=== PATIENT | female | born 1970 | race Two or more races ===

== ENCOUNTER 2020-04-28 10:08 | Inpatient (IN) | payer BC, SELFPAY ==
[2020-04-28] VITALS (26 sets, daily range): BP systolic 99–162; BP diastolic 60–106; PULSE 68–89; RESP 14–20; TEMP 36.6–37.1; O2SAT 91–99; BMI 34.3; BMI 30.9; BMI 31.8
--- NOTE | 2020-04-28 | IR_ITS ---
APPROVED REPORT Patient Location: Emergent Gr[facility] Lap: CANDACE Bower RT (R) PROCEDURES Left heart catheterization Left ventriculogram Selective coronary angiogram Drug-eluting stent deployment to the proximal and mid LAD INDICATION Acute non-ST elevation myocardial infarction, Coronary artery disease Informed consent was obtained prior to the procedure. COMPLICATIONS none Estimated Blood Loss: less than 10 mls TECHNIQUE One percent lidocaine used to anesthetize the right anterior aspect of the wrist. The right radial artery was accessed via the Seldinger technique. A 6 Amharic sheath was placed in the right radial artery. 2.5 mg of verapamil, 800 mcg of nitroglycerin, 1mg Lidocaine and 5000 U Heparin were given through the arterial sheath. A Papa catheter was used to intubate the left main artery and perform left coronary angiography as well as left heart catheterization and left ventriculogram as well as right coronary artery angiography. Therapeutic heparin was administered. The guide catheter was placed in the left main artery and a Choice PT extra-support wire was placed distally in the LAD. A 2.5 x 38 mm resolute jacki stent was deployed at 14 perla reducing the stenosis. A small dissection was identified distally therefore a 2 mm x 8 mm resolute jacki stent was deployed at 14 perla tacking back the dissection. The second stent overlapped with the distal aspect of the first stent. The balloon was then brought back into the 2 stents and deployed at 20 perla to mesh the stents. Following this a 3.0 x 15 mm resolute jacki stent was placed proximal to the first stent placed yet still overlapping it and deployed at 20 perla. The balloon was advanced on 2 occasions and dilated at 20 perla to post dilate the midportion of the LAD. 800 mcg of nitroglycerin was administered intra-arterially. CHAGO-3 flow was present at the end of the procedure with CHAGO II flow present at the beginning of the procedure. Following this the catheter was pulled out and used to intubate the right coronary artery. A wire was initially placed distally however after repeat angiography it was decided to abort this procedure given the decent collateralization of the distal chronically occluded right coronary artery. At this point the apparatus was removed the sheath was removed good hemostasis was achieved using TR banding patient was transferred to the postop holding her stable condition ANGIOGRAPHIC RESULTS The left main artery Normal The left anterior descending artery Has a proximal concentric 80% stenosis followed by 40% mid vessel stenosis followed by an additional 80% stenosis proximal to the second diagonal artery. The remaining vessel has 30% stenoses The circumflex artery Is a large dominant vessel and has mid vessel 30 to 40% stenosis with 30% stenosis in the terminal large obtuse marginal artery The right coronary artery Is a nondominant vessel and occluded in its mid segment. The distal vessel fills via [id number] collaterals The PAYNE ventriculogram reveals Reduced ejection fraction estimated at 35% with anterior apical hypokinesis The left ventricular end-diastolic pressure 20 mmHg IMPRESSION Critical two-vessel coronary disease as described above Successful stenting of the proximal through mid right coronary artery in a contiguous manner with 3 drug-eluting stents reducing critical disease to 0% and improving coronary flow from CHAGO II to CHAGO-3 flow Chronically occluded nondominant right coronary artery which fills via [id number] collaterals Reduced ejection fraction with regional wall motion abnormality Mildly elevated LVEDP PLAN 1. Brilinta and aspirin for 1 year 2. LDL less than 55 3
--- NOTE | 2020-04-28 10:03 | ECG_ITS ---
APPROVED REPORT Exam: Resting ECG HR:93 bpm ECG Measurements Heart Rate 93 AXES ND 136 P 67 QRSd 82 QRS 40 QT 426 T 144 QTc 529 <Conclusion> Sinus rhythm with frequent premature ventricular complexes Cannot rule out Inferior infarct, age undetermined Anterior infarct, age undetermined ST & T wave abnormality, consider lateral ischemia Prolonged QT Abnormal ECG Electronically signed by : Phillip Lopez, 04/28/2020 17:26:50
--- NOTE | 2020-04-28 10:14 | XR_ITS ---
PROCEDURE: XR CHEST PORTABLE CLINICAL HISTORY: chest pain COMPARISON: No exams were available for comparison FINDINGS: 0.2 millimeter calcified granuloma within the left lung apex is noted. There is mild thoracic scoliosis. Heart is enlarged and soft tissues are intact IMPRESSION: 3.2 millimeter left apical calcified granuloma, mild thoracic scoliosis, cardiomegaly Dictated by: Ezequiel Tsang 04/28/2020 11:18 Electronically signed by Ezequiel Tsang in [facility] 04/28/2020 11:18
--- NOTE | 2020-04-28 10:18 | CT_ITS ---
PROCEDURE: CT ANGIO CHEST CLINCIAL INDICATION: chest pain COMPARISON: No exams were available for comparison TECHNIQUE: IV Contrast: 70ML OPTIRAY 350 Axial images obtained with sagittal and coronal reformats. All CT scans at the facility use one or more dose reduction, viz: automated exposure control, ma/kV adjustment per patient size (including targeted exams where dose is matched to indication, i.e. head), or iterative reconstruction technique. FINDINGS: There is mild hypoventilation within the dependent portions of both lung bases. Tracheobronchial tree is unremarkable. There is a 1 centimeter calcified granuloma within the left lung apex. Thyroid is incompletely visualized. Subcentimeter mediastinal lymph nodes are noted. There are coronary artery calcifications. There is no CT evidence of pulmonary emboli. Partially visualized upper abdominal structures, adrenal glands, soft tissues, and the bony structures are unremarkable. IMPRESSION: Left apical granuloma, no CT evidence of pulmonary emboli Dictated by: Ezequiel Tsang 04/28/2020 11:12 Electronically signed by Ezequiel Tsang in [facility] 04/28/2020 11:12
[2020-04-28 10:28] LABS: Basophils # 0.1 K/mm3 (0-0.2); Basophils % 0.4 % (0.1-2.0); Eosinophils # 0.2 K/mm3 (0.0-0.4); Eosinophils % 1.3 % (0.1-12.0); Hemoglobin 13.9 g/dL (12.2-16.2); Lymphocytes # 1.8 K/mm3 (0.7-4.5); Lymphocytes % 16.1 % (10-50); Mean Corpuscular HGB Conc 36.5 g/dL (31.8-35.4); Mean Corpuscular Hemoglobin 31.6 pg (27.0-31.2); Mean Corpuscular Volume 86.6 fl (81-99); Mean Platelet Volume 7.6 fl (7.4-10.4); Monocytes # 0.5 K/mm3 (0.1-1.0); Monocytes % 4.4 % (1.7-9.3); Neutrophils # 8.7 K/mm3 (1.8-7.8); Neutrophils % 77.9 % (37.0-80.0); Platelet Count 207 K/mm3 (142-424); Red Blood Count 4.39 M/mm3 (4.20-5.40); Red Cell Distribution Width 15.9 % (11.5-17.5); White Blood Count 11.2 K/mm3 (4.8-10.8)
[2020-04-28 10:33] LABS: Anion Gap 8.6 mEq/L (5-15); Blood Urea Nitrogen 5 mg/dl (7-17); Calcium 9.1 mg/dl (8.4-10.2); Carbon Dioxide 31 mmol/L (22.0-30.0); Chloride 104 mmol/L (98-107); Creatinine Clearance Estimated 125 mL/min (50-200); Estimated Glomerular Filt Rate 89 ml/min (>60); GFR (African American) 108 ML/MIN (>60); Glucose 156 mg/dl (74-100); Sodium 141 mmol/L (136-145)
[2020-04-28 10:35] LABS: Potassium 2.6 mmoL/L (3.5-5.1)
--- NOTE | 2020-04-28 10:35 | PC.NURSE ---
CECILIA, FROM LAB, CALLED A CRITICAL POTASSIUM OF 2.6 MD NOTIFIED.
--- NOTE | 2020-04-28 11:32 | CA_ITS ---
APPROVED REPORT EXAM: Comprehensive 2D, Doppler, and color-flow Echocardiogram Product Sales Representative: Daniella Serrano RDCS Ht: 5 ft 4 in Wt: 180lbs BSA: 1.87 BP: 148/95 mmHg Indications: CP,NSTEMI 2D Dimensions LVOT 1.64 cm (M/F) 1.5-2.5 M-Mode Dimensions RVDd 3.04 cm (0.9-2.6) LVDd 4.82 cm (3.5-5.7) LVDs 3.72 cm (3.5-5.7) IVSd 0.87 cm (0.6-1.1) PWd 0.80 cm (0.6-1.1) EF (Teich) 45.80% FS 22.80% EDV (Teich) 108.60 mL ESV (Teich) 58.90 mL LV Diastology E/A Ratio 0.82 Mitral Valve MV A Velocity 75.00 (40-130 cm/s) Left Ventricle Left atrium is mildly enlarged, left ventricle is normal size, mild concentric left ventricular hypertrophy, visually estimated ejection fraction 45%, there is moderate hypokinesis involving the mid to distal septum and apical wall. Grade 1 diastolic dysfunction seen without tissue Doppler evidence of raise left atrial pressure. Right Ventricle Right atrium and right ventricular normal size and contractility. Aortic Valve Aortic valve is minimally thickened and fibrosed, there is no aortic stenosis or aortic insufficiency. Mitral Valve Mitral valve is minimally thickened, there is no mitral stenosis, there is mild mitral regurgitation. Tricuspid Valve Tricuspid valve is grossly normal, there is mild tricuspid regurgitation, tricuspid regurgitation jet velocity is inadequate for calculation of the right ventricular systolic pressure. Pulmonic Valve Pulmonic valve is poorly visualized. Great Vessels Aortic root is normal size. Pericardium No significant pericardial effusion noted. Conclusion 1. Mildly enlarged left atrium, normal left ventricular size, mild concentric left ventricular hypertrophy, visually estimated ejection fraction 45% with segmental wall motion abnormality described above, grade 1 diastolic dysfunction seen without tissue Doppler evidence of raise left atrial pressure. 2. Mild mitral and tricuspid regurgitation. 3. No significant pericardial effusion noted. Electronically signed by : Brian Johnson, 04/28/2020 19:03:31
--- NOTE | 2020-04-28 11:35 | HMH.CNCARD ---
History of Present Illness Consult date: 04/28/20 Consult reason: chest pain Chief complaint: NSTEMI Additional Medical History:: 1. Tobacco use, 1 pack/day, continuous A. Emphysema B. Follows a esthetic dermatologist in [facility] 2. History of stage IV cirrhosis of the liver secondary to history of alcohol use discontinued about 4 years ago A. Patient is followed by sampler radioactive waste in [facility] 3. Non-ST elevation IA, 04/28/2020 4. Family history of coronary artery disease in her mother and reportedly had heart disease starting in her late 40s early 50s History of present illness: 50-year-old white female with tobacco use, COPD and cirrhosis of the liver who normally has most of her care provided in [facility] presented to the emergency department by ambulance for evaluation of chest pain/pressure that started continuously on 04/26/2020. Symptoms of heavy chest pressure woke him from sleep with associated dry heaving ultimately progressing to vomiting with shortness of breath and diaphoresis. Patient did take an aspirin yesterday and today the symptoms persisted which prompted calling EMS for further evaluation. She does relate intermittent chest pressure for 1 week. She does continue to smoke. She denies illegal drug use. Initial work-up in the ER included CTA of the chest for possible pulmonary embolus, it returned without evidence of pulmonary embolus. EKG shows sinus rhythm with poor R wave progression anteriorly, possible inferior infarct with nonspecific ST-T abnormalities. Initial labs pertinent for potassium of 2.6 and troponin of 15.0 Cardiology contacted and patient was started on Brilinta and heparin. [facility] History *Have you ever received a pneumonia vaccine?: No *Have you received a flu vaccine this season?: Yes - *Social History Smoking Status: Current every day smoker Tobacco Type: cigarettes # Packs/Day (cigarettes): 1 Alcohol Intake: never *Occupational Status:: other Housing: other Household Members: other *Travel in the last 8 weeks: None Family Hx:: Coronary Artery Disease Meds Allergies Allergy/AdvReac Type Severity Reaction Status Date / Time morphine Allergy Intermediate itching Verified 04/28/20 11:40 ondansetron [From Zofran] Allergy Unknown Verified 04/28/20 11:40 allergy reaction Review of Systems - Review of Systems Review of systems:: pertinent systems reviewed and negative unless documented below - *Cardiovascular Reports chest pain, Reports shortness of breath - *Respiratory Reports shortness of breath - *Gastrointestinal Reports nausea, Reports vomiting, Denies loose stools - *Genitourinary Denies blood in urine - *Musculoskeletal Denies joint pain, Denies back pain - *Neurologic Denies dizziness, Denies fainting Exam Vital signs and Labs for Last 24 Hours: Temp Pulse Resp BP Pulse Ox 98.2 F 83 16 133/83 98 04/28/20 10:09 04/28/20 10:48 04/28/20 10:09 04/28/20 10:48 04/28/20 10:09 Laboratory Results - last 24 hr 04/28/20 10:10: WBC 11.2 H, RBC 4.39, Hgb 13.9, Hct 38.0, MCV 86.6, MCH 31.6 H, MCHC 36.5 H, RDW 15.9, Plt Count 207, MPV 7.6, Neut % (Auto) 77.9, Lymph % (Auto) 16.1, [place] % (Auto) 4.4, Eos % (Auto) 1.3, Baso % (Auto) 0.4, Neut # (Auto) 8.7 H, Lymph # (Auto) 1.8, [place] # (Auto) 0.5, Eos # (Auto) 0.2, Baso # (Auto) 0.1 04/28/20 10:10: Troponin I 15.00 H 04/28/20 10:10: Sodium 141, Potassium 2.6 L*, Chloride 104, Carbon Dioxide 31 H, Anion Gap 8.6, BUN 5 L, Creatinine 0.70, Estimated Creat Clear 125, Estimated GFR 89, Est GFR ( Amer) 108, Glucose 156 H, Calcium 9.1 I & O for Last 24 hours: Intake & Output 04/25/20 04/26/20 04/27/20 04/28/20 11:59 11:59 11:59 11:59 Weight 180 lb - *Routine HEENT Exam Head: Present: normocephalic Eye: Present: EOMI, PERRL ENT: Present: mucous membranes moist - *Routine Neck Exam Present: supple. Absent: JVD, carotid bruit - *Routine Respiratory Exam
[2020-04-28 11:42] LABS: Activated Partial Thrombo Time 22.6 seconds (23.6-34.0); INR 1.08 (0.9-1.1)
--- NOTE | 2020-04-28 11:44 | PC.NURSE ---
echo being done now
[2020-04-28 11:45] LABS: Adenovirus,PCR Not Detected (NotDetected); Bordetella Pertussis Not Detected (NotDetected); Chlamydophila Pneumoniae, PCR Not Detected (NotDetected); Coronavirus 19, PCR Not Detected (NotDetected); Coronavirus 229E Not Detected (NotDetected); Coronavirus NL63 Not Detected (NotDetected); Coronavirus OC43 Not Detected (NotDetected); Coronovirus HKU1,PCR Not Detected (NotDetected); Human Metapneumovirus Not Detected (NotDetected); Influenza A, PCR Not Detected (NotDetected); Influenza AH1, 2009 Not Detected (NotDetected); Influenza AH1, PCR Not Detected (NotDetected); Influenza AH3,PCR Not Detected (NotDetected); Influenza B, PCR Not Detected (NotDetected); Mycoplasma Pneumoniae, PCR Not Detected (NotDected); Parainfluenza 1, PCR Not Detected (NotDetected); Parainfluenza 2, PCR Not Detected (NotDetected); Parainfluenza 3, PCR Not Detected (NotDetected); Parainfluenza 4, PCR Not Detected (NotDetected); Respiratory Syncytial Virus Not Detected (NotDetected); Rhinovirus/Enterovirus Not Detected (NotDetected)
--- NOTE | 2020-04-28 12:08 | PC.NURSE ---
pt transferred to laborer wharf
--- NOTE | 2020-04-28 12:22 | PC.NURSE ---
SPEAKING WITH DR. CARDOZA
--- NOTE | 2020-04-28 12:25 | PC.NURSE ---
SPOKE WITH CARE MANAGEMENT
--- NOTE | 2020-04-28 12:31 | PC.NURSE ---
NOTIFIED HOUSE OF ADMISSION
--- NOTE | 2020-04-28 12:57 | HMH.EDGENADL ---
ED Disposition Clinical Impression: Non-STEMI (non-ST elevated myocardial infarction), Chest pain Disposition: Admitted as Observation Condition on Discharge: Good - Critical Care Critical Care Time: No Attestation: On 04/28/20, the high probability of a clinically significant, sudden or life threatening deterioration of the following system(s) required my full and direct attention, intervention and personal management. The time I documented below is in addition to time spent performing reported procedures but includes the following listed in this critical care notation. Medical Decision Making - Medical Records Medical records reviewed: Yes: I reviewed the patient's medical records. - Lee Inquiry Pt receiving controlled substance: No Vital Signs: 04/28/20 10:09 04/28/20 10:48 04/28/20 11:00 Temperature 98.2 F Temperature Source Oral Pulse Rate Pulse Rate [Left Radial] 88 83 80 Respiratory Rate 16 Blood Pressure Blood Pressure [Right Radial Artery] 156/106 H 133/83 134/93 H Blood Pressure Mean [Right Radial Artery] 122 99 106 Blood Pressure Source [Right Radial Artery] Blood Pressure Position Blood Pressure Position [Right Radial Artery] Sitting Sitting 02 Sat by Pulse Oximetry 98 Oxygen Delivery Method Room Air 04/28/20 11:30 04/28/20 11:39 04/28/20 12:00 Temperature Temperature Source Pulse Rate Pulse Rate [Left Radial] 81 76 76 Respiratory Rate 20 Blood Pressure Blood Pressure [Right Radial Artery] 142/98 H 142/98 H 125/90 Blood Pressure Mean [Right Radial Artery] 112 112 101 Blood Pressure Source [Right Radial Artery] Automatic Cuff Blood Pressure Position Blood Pressure Position [Right Radial Artery] Sitting Supine Sitting 02 Sat by Pulse Oximetry 95 Oxygen Delivery Method Room Air 04/28/20 12:29 Temperature 98 F Temperature Source Oral Pulse Rate 78 Pulse Rate [Left Radial] Respiratory Rate 16 Blood Pressure 135/90 Blood Pressure [Right Radial Artery] Blood Pressure Mean [Right Radial Artery] Blood Pressure Source [Right Radial Artery] Blood Pressure Position Sitting Blood Pressure Position [Right Radial Artery] 02 Sat by Pulse Oximetry Oxygen Delivery Method Room Air - Lab Data Lab results reviewed: Yes: I reviewed the patient's lab results. Lab Results 04/28/20 10:10: WBC 11.2 H, RBC 4.39, Hgb 13.9, Hct 38.0, MCV 86.6, MCH 31.6 H, MCHC 36.5 H, RDW 15.9, Plt Count 207, MPV 7.6, Neut % (Auto) 77.9, Lymph % (Auto) 16.1, [place] % (Auto) 4.4, Eos % (Auto) 1.3, Baso % (Auto) 0.4, Neut # (Auto) 8.7 H, Lymph # (Auto) 1.8, [place] # (Auto) 0.5, Eos # (Auto) 0.2, Baso # (Auto) 0.1 04/28/20 10:10: Troponin I 15.00 H 04/28/20 10:10: Sodium 141, Potassium 2.6 L*, Chloride 104, Carbon Dioxide 31 H, Anion Gap 8.6, BUN 5 L, Creatinine 0.70, Estimated Creat Clear 125, Estimated GFR 89, Est GFR ( Amer) 108, Glucose 156 H, Calcium 9.1 04/28/20 10:10: PT 11.0, INR 1.08, APTT 22.6 L 04/28/20 11:30: Chlamy pneumoniae PCR Not detected, Adenovirus (PCR) Not detected, B. pertussis DNA (PCR) Not detected, Coronavirus OC43 (PCR) Not detected, Coronavirus HKU1 (PCR) Not detected, Coronavirus 229E (PCR) Not detected, COVID-19 PCR Not detected, Coronavirus NL63 (PCR) Not detected, Human Metapneumovir PCR Not detected, Influenza A (H1) PCR Not detected, Influ A (H1N1/09) PCR Not detected, Influenza A (H3) PCR Not detected, Influenza Type A (PCR) Not detected, Influenza Type B (PCR) Not detected, M. pneumoniae (PCR) Not detected, Parainfluenza 1 (PCR) Not detected, Parainfluenza 2 (PCR) Not detected, Parainfluenza 3 (PCR) Not detected, Parainfluenza 4 (PCR) Not detected, RSV (PCR) Not detected, Entero/Rhino (PCR) Not detected Result diagrams: 04/28/20 10:10 04/28/20 10:10 Orders (Tests/Meds): ED MEDICATIONS Generic Name Dose Route Start Last Admin Trade Name Freq PRN Reason Stop Dose Admin Atorvastatin Calcium 80 mg 04/28/20 12:00 04/28/20 12
--- NOTE | 2020-04-28 14:06 | P.CONPHA_ITS ---
[facility] [place] Pharmacy Heparin Dosing - Demographic Data Admission date:: 04/28/20 Date: 04/28/20 Time: 14:07 Allergies/Adverse Reactions: Allergies Allergy/AdvReac Type Severity Reaction Status Date / Time morphine Allergy Intermediate itching Verified 04/28/20 11:40 ondansetron [From Zofran] Allergy Unknown Verified 04/28/20 11:40 allergy reaction Height: 1.63 m Weight: 81.6 kg - Indication Medication therapy:: Heparin Patient Problems: Current Active Problems NSTEMI (non-ST elevated myocardial infarction) (Acute) Tobacco use (Acute) COPD (chronic obstructive pulmonary disease) (Acute) Cirrhosis of liver (Acute) Hypokalemia (Acute) Non-STEMI (non-ST elevated myocardial infarction) (Acute) Chest pain (Acute) CVA?: No Bleeding problem?: No Kidney disease?: No W[place]?: No Desired PTT range:: 60-80 seconds - Labs Anticoagulation Lab Results:: 04/28/20 10:10 Hgb 13.9 Hct 38.0 Plt Count 207 - Core Measures Is INR > or = 2 at discharge?: No Most Recent Labs:: Laboratory Results - last 24 hr 04/28/20 10:10: WBC 11.2 H, RBC 4.39, Hgb 13.9, Hct 38.0, MCV 86.6, MCH 31.6 H, MCHC 36.5 H, RDW 15.9, Plt Count 207, MPV 7.6, Neut % (Auto) 77.9, Lymph % (Auto) 16.1, [place] % (Auto) 4.4, Eos % (Auto) 1.3, Baso % (Auto) 0.4, Neut # (Auto) 8.7 H, Lymph # (Auto) 1.8, [place] # (Auto) 0.5, Eos # (Auto) 0.2, Baso # (Auto) 0.1 04/28/20 10:10: Troponin I 15.00 H 04/28/20 10:10: Sodium 141, Potassium 2.6 L*, Chloride 104, Carbon Dioxide 31 H, Anion Gap 8.6, BUN 5 L, Creatinine 0.70, Estimated Creat Clear 125, Estimated GFR 89, Est GFR ( Amer) 108, Glucose 156 H, Calcium 9.1 04/28/20 10:10: PT 11.0, INR 1.08, APTT 22.6 L 04/28/20 11:30: Chlamy pneumoniae PCR Not detected, Adenovirus (PCR) Not detected, B. pertussis DNA (PCR) Not detected, Coronavirus OC43 (PCR) Not detected, Coronavirus HKU1 (PCR) Not detected, Coronavirus 229E (PCR) Not detected, COVID-19 PCR Not detected, Coronavirus NL63 (PCR) Not detected, Human Metapneumovir PCR Not detected, Influenza A (H1) PCR Not detected, Influ A (H1N1/09) PCR Not detected, Influenza A (H3) PCR Not detected, Influenza Type A (PCR) Not detected, Influenza Type B (PCR) Not detected, M. pneumoniae (PCR) Not detected, Parainfluenza 1 (PCR) Not detected, Parainfluenza 2 (PCR) Not detected, Parainfluenza 3 (PCR) Not detected, Parainfluenza 4 (PCR) Not detected, RSV (PCR) Not detected, Entero/Rhino (PCR) Not detected If INR was < than 2.0 why was therapy stopped?: HEPARIN DRIP STOPPED AND CHANGE TO ASPIRIN/BRILINTA Were Heparin and Warfarin started on the same day?: No If not, why?: HEPARIN DRIP STOPPED AND CHANGE TO ASPIRIN/BRILINTA
[2020-04-28 14:55] LABS: CATHL Activated Clotting Time 251 SEC (74-125)
--- NOTE | 2020-04-28 15:19 | HMH.PHAVTE ---
[facility] Pharmacy VTE Monitoring - Patient Demographics Admission date: 04/28/20 Report Date: 04/28/20 Time: 15:19 Allergies/Adverse Reactions: Patient Allergies morphine Allergy (Intermediate, Verified 04/28/20 11:40) itching ondansetron [From Zofran] Allergy (Verified 04/28/20 11:40) Unknown allergy reaction Height: 1.63 m Weight: 81.6 kg Patient Problems: Current Active Problems NSTEMI (non-ST elevated myocardial infarction) (Acute) Tobacco use (Acute) COPD (chronic obstructive pulmonary disease) (Acute) Cirrhosis of liver (Acute) Hypokalemia (Acute) Non-STEMI (non-ST elevated myocardial infarction) (Acute) Chest pain (Acute) - VTE Risk Labs: VTE Related Lab Results Hgb 13.9 g/dL (12.2-16.2) 04/28/20 10:10 Hct 38.0 % (37.0-47.0) 04/28/20 10:10 Plt Count 207 K/mm3 (142-424) 04/28/20 10:10 PT 11.0 seconds (9.4-11.8) 04/28/20 10:10 INR 1.08 (0.9-1.1) 04/28/20 10:10 APTT 22.6 seconds (23.6-34.0) L 04/28/20 10:10 BUN 5 mg/dl (7-17) L 04/28/20 10:10 Creatinine 0.70 mg/dl (0.52-1.04) 04/28/20 10:10 Estimated Creat Clear 125 mL/min (50-200) 04/28/20 10:10 Was VTE Risk Assessment Performed: Yes VTE Score: 2 VTE Risk Level: Very Low Risk - Prophylaxis VTE Prophylaxis Ordered?: Yes Types of VTE Prophylaxis: TEDS Knee High Location of Applied Device: Bilateral Lower Extremeties - VTE Diagnosis Confirmed Treatment or plan recommended: Continue Current Treatment
--- NOTE | 2020-04-28 17:14 | HMH.HP ---
*Admission Date: 04/28/20 *Chief complaint: Chest pain/SOA *History of present illness: 50-year-old white female with tobacco use, COPD and cirrhosis of the liver who normally has most of her care provided in [facility] presented to the emergency department by ambulance for evaluation of chest pain/pressure that started continuously on 04/26/2020. Symptoms of heavy chest pressure woke him from sleep with associated dry heaving ultimately progressing to vomiting with shortness of breath and diaphoresis. Patient did take an aspirin yesterday and today the symptoms persisted which prompted calling EMS for further evaluation. She does relate intermittent chest pressure for 1 week. She does continue to smoke. She denies illegal drug use. Initial work-up in the ER included CTA of the chest for possible pulmonary embolus, it returned without evidence of pulmonary embolus. EKG shows sinus rhythm with poor R wave progression anteriorly, possible inferior infarct with nonspecific ST-T abnormalities. Initial labs pertinent for potassium of 2.6 and troponin of 15.0 Cardiology contacted and patient was started on Brilinta and heparin. Above per cards... taken to lab scientist urgently. [facility] History I have reviewed the patient's past medical history: Yes Medical History: Reports:: Chronic Obstructive Pulmonary Disease (COPD), Hyperlipidemia, Hypertension *Have you ever received a pneumonia vaccine?: Yes *Have you received a flu vaccine this season?: Yes Laterality Cases: Left: Arthroscopy Shoulder, Bilateral: Carpal Tunnel Release Other Surgeries: Yes: Cholecystectomy, Colonoscopy Amputation: No Fractures: No - *Social History Educational Level: Attended High School Smoking Status: Current every day smoker Tobacco Type: cigarettes # Packs/Day (cigarettes): 1 Alcohol Intake: never *Occupational Status:: disabled Housing: other Household Members: friend(s) *Travel in the last 8 weeks: None Family Hx:: Heart Attack Review of Systems - Review of Systems Review of systems:: pertinent systems reviewed and negative unless documented below - *Neurologic Denies dizziness, Denies fainting Meds Allergies Allergy/AdvReac Type Severity Reaction Status Date / Time morphine Allergy Intermediate itching Verified 04/28/20 11:40 ondansetron [From Zofran] Allergy Unknown Verified 04/28/20 11:40 allergy reaction Exam Vital signs and Labs for Last 24 Hours: Temp Pulse Resp BP Pulse Ox 98.3 F 84 14 162/84 H 97 04/28/20 17:05 04/28/20 17:05 04/28/20 17:05 04/28/20 17:05 04/28/20 17:05 Laboratory Results - last 24 hr 04/28/20 10:10: WBC 11.2 H, RBC 4.39, Hgb 13.9, Hct 38.0, MCV 86.6, MCH 31.6 H, MCHC 36.5 H, RDW 15.9, Plt Count 207, MPV 7.6, Neut % (Auto) 77.9, Lymph % (Auto) 16.1, [place] % (Auto) 4.4, Eos % (Auto) 1.3, Baso % (Auto) 0.4, Neut # (Auto) 8.7 H, Lymph # (Auto) 1.8, [place] # (Auto) 0.5, Eos # (Auto) 0.2, Baso # (Auto) 0.1 04/28/20 10:10: Troponin I 15.00 H 04/28/20 10:10: Sodium 141, Potassium 2.6 L*, Chloride 104, Carbon Dioxide 31 H, Anion Gap 8.6, BUN 5 L, Creatinine 0.70, Estimated Creat Clear 125, Estimated GFR 89, Est GFR ( Amer) 108, Glucose 156 H, Calcium 9.1 04/28/20 10:10: PT 11.0, INR 1.08, APTT 22.6 L 04/28/20 11:30: Chlamy pneumoniae PCR Not detected, Adenovirus (PCR) Not detected, B. pertussis DNA (PCR) Not detected, Coronavirus OC43 (PCR) Not detected, Coronavirus HKU1 (PCR) Not detected, Coronavirus 229E (PCR) Not detected, COVID-19 PCR Not detected, Coronavirus NL63 (PCR) Not detected, Human Metapneumovir PCR Not detected, Influenza A (H1) PCR Not detected, Influ A (H1N1/09) PCR Not detected, Influenza A (H3) PCR Not detected, Influenza Type A (PCR) Not detected, Influenza Type B (PCR) Not detected, M. pneumoniae (PCR) Not detected, Parainfluenza 1 (PCR) Not detected, Parainfluenza 2 (PCR) Not detected, Parainfluenza 3 (PCR) Not detected, Parainfluenza 4 (PCR) Not detected, RSV (PCR) Not detected, Entero
--- NOTE | 2020-04-28 19:10 | PC.NURSE ---
Tracelet removed by hospital policy to (R) radial site. Pt tolerated well w/ no s/s of active bleeding. Telfa and Tegarderm dressing applied. Has ambulated to bathroom w/ standby assistance w/ no safety concerns. Is NSR on teley. Remains on room air. Refuses TEDS. Report given to Robb Sam RN.
--- NOTE | 2020-04-28 19:14 | PC.NURSE ---
report given to jami
[2020-04-29] VITALS (23 sets, daily range): BP systolic 75–148; BP diastolic 47–81; PULSE 47–73; RESP 12–62; TEMP 36.6–36.8; O2SAT 91–100
--- NOTE | 2020-04-29 02:48 | PC.NURSE ---
She is has been resting in bed. Received PRN medication for nausea. Had a bedtime snack of cheese and crackers before bed. She reported SOA and was educated on the side effects of Brilinta. DSG on right radial site is C/D/I. BP decreased during the night but is continuing to be monitored. NSR on telemetry at times and bradycardia at other during the shift with occasional PVCs.
[2020-04-29 05:56] LABS: Basophils # 0.1 K/mm3 (0-0.2); Basophils % 0.7 % (0.1-2.0); Eosinophils # 0.3 K/mm3 (0.0-0.4); Eosinophils % 2.7 % (0.1-12.0); Lymphocytes # 3.2 K/mm3 (0.7-4.5); Lymphocytes % 30.7 % (10-50); Mean Corpuscular HGB Conc 33.7 g/dL (31.8-35.4); Mean Corpuscular Hemoglobin 31.3 pg (27.0-31.2); Mean Corpuscular Volume 92.7 fl (81-99); Mean Platelet Volume 8.1 fl (7.4-10.4); Monocytes # 0.6 K/mm3 (0.1-1.0); Neutrophils # 6.2 K/mm3 (1.8-7.8); Platelet Count 182 K/mm3 (142-424); Red Blood Count 3.77 M/mm3 (4.20-5.40); Red Cell Distribution Width 16.3 % (11.5-17.5); White Blood Count 10.3 K/mm3 (4.8-10.8)
[2020-04-29 06:00] LABS: Chloride 107 mmol/L (98-107); Potassium 3.4 mmoL/L (3.5-5.1); Sodium 142 mmol/L (136-145)
[2020-04-29 06:03] LABS: Blood Urea Nitrogen 7 mg/dl (7-17); Creatinine Clearance Estimated 110 mL/min (50-200); Estimated Glomerular Filt Rate 76 ml/min (>60); GFR (African American) 92 ML/MIN (>60)
[2020-04-29 06:04] LABS: Anion Gap 8.4 mEq/L (5-15); Calcium 8.5 mg/dl (8.4-10.2); Carbon Dioxide 30 mmol/L (22.0-30.0); Glucose 111 mg/dl (74-100)
[2020-04-29 06:05] LABS: Hemoglobin 11.9 g/dL (12.2-16.2)
[2020-04-29 07:13] LABS: Chol/HDL Ratio 9.2 (1-3.5); Cholesterol 166 mg/dl (140-200); HDL Cholesterol 18 mg/dl (40-60); Triglycerides 149 mg/dl (30-150); VLDL Cholesterol 30 mg/dL (0-40)
--- NOTE | 2020-04-29 07:14 | HMH.PNCARD ---
Subjective Date: 04/29/20 Time: 07:14 Principal diagnosis: NSTEMI Interval history: 50 yo WF in bed in NAD. Still with some SS CP, rated 6/10 now but strong 8/10 in ER. Some tenderness with palpation of chest wall but not the same pain. Some complaint of SOA but willing to continue brilinta for now to see if it improves. Nursing relates occasional bradycardia into the 40's and systolic BP into the 80's. Discussed smoking cessation and she states she is not wanting any cigarettes nor nicotine patch. Telemetry shows sinus rhythm with no arrhythmias. Exam Vital signs and Labs for Last 24 Hours: Temp Pulse Resp BP Pulse Ox 98.3 F 47 L 16 99/67 L 96 04/28/20 20:05 04/29/20 06:31 04/29/20 06:00 04/29/20 06:31 04/29/20 06:31 Laboratory Results - last 24 hr 04/28/20 10:10: WBC 11.2 H, RBC 4.39, Hgb 13.9, Hct 38.0, MCV 86.6, MCH 31.6 H, MCHC 36.5 H, RDW 15.9, Plt Count 207, MPV 7.6, Neut % (Auto) 77.9, Lymph % (Auto) 16.1, [place] % (Auto) 4.4, Eos % (Auto) 1.3, Baso % (Auto) 0.4, Neut # (Auto) 8.7 H, Lymph # (Auto) 1.8, [place] # (Auto) 0.5, Eos # (Auto) 0.2, Baso # (Auto) 0.1 04/28/20 10:10: Troponin I 15.00 H 04/28/20 10:10: Sodium 141, Potassium 2.6 L*, Chloride 104, Carbon Dioxide 31 H, Anion Gap 8.6, BUN 5 L, Creatinine 0.70, Estimated Creat Clear 125, Estimated GFR 89, Est GFR ( Amer) 108, Glucose 156 H, Calcium 9.1 04/28/20 10:10: PT 11.0, INR 1.08, APTT 22.6 L 04/28/20 11:30: Chlamy pneumoniae PCR Not detected, Adenovirus (PCR) Not detected, B. pertussis DNA (PCR) Not detected, Coronavirus OC43 (PCR) Not detected, Coronavirus HKU1 (PCR) Not detected, Coronavirus 229E (PCR) Not detected, COVID-19 PCR Not detected, Coronavirus NL63 (PCR) Not detected, Human Metapneumovir PCR Not detected, Influenza A (H1) PCR Not detected, Influ A (H1N1/09) PCR Not detected, Influenza A (H3) PCR Not detected, Influenza Type A (PCR) Not detected, Influenza Type B (PCR) Not detected, M. pneumoniae (PCR) Not detected, Parainfluenza 1 (PCR) Not detected, Parainfluenza 2 (PCR) Not detected, Parainfluenza 3 (PCR) Not detected, Parainfluenza 4 (PCR) Not detected, RSV (PCR) Not detected, Entero/Rhino (PCR) Not detected 04/28/20 11:43: Activated Clotting Time 251 H* 04/29/20 05:27: WBC 10.3, RBC 3.77 L, Hgb 11.9 L D, Hct 35.0 L, MCV 92.7, MCH 31.3 H, MCHC 33.7, RDW 16.3, Plt Count 182, MPV 8.1, Neut % (Auto) 60.0, Lymph % (Auto) 30.7, [place] % (Auto) 6.0, Eos % (Auto) 2.7, Baso % (Auto) 0.7, Neut # (Auto) 6.2, Lymph # (Auto) 3.2, [place] # (Auto) 0.6, Eos # (Auto) 0.3, Baso # (Auto) 0.1 04/29/20 05:27: Sodium 142, Potassium 3.4 L D, Chloride 107, Carbon Dioxide 30, Anion Gap 8.4, BUN 7 D, Creatinine 0.80, Estimated Creat Clear 110, Estimated GFR 76, Est GFR ( Amer) 92, Glucose 111 H D, Calcium 8.5 04/29/20 05:27: Triglycerides 149, Cholesterol 166, VLDL Cholesterol 30 I & O for Last 24 hours: Intake & Output 04/26/20 04/27/20 04/28/20 04/29/20 11:59 11:59 11:59 11:59 Intake Total 720 / 720 Balance 720 / 720 Weight 180 lb 179 lb 14.355 oz - *Routine HEENT Exam Head: Present: normocephalic Eye: Present: EOMI, PERRL ENT: Present: mucous membranes moist - *Routine Respiratory Exam Present: CTA bilaterally. Absent: accessory muscle use, rales, rhonchi, wheezes - *Routine Cardiovascular Exam Present: RRR. Absent: murmur, gallop, rubs - *Routine Abdominal Exam Present: soft. Absent: tenderness, distended, guarding - *Routine Extremities Exam Absent: edema, calf tenderness - *Routine Neurological Exam Present: alert, oriented X3, moving all extremities Progress Note: A&P (1) NSTEMI (non-ST elevated myocardial infarction) Status: Acute Current Visit: Yes (2) Tobacco use Status: Acute Current Visit: Yes (3) COPD (chronic obstructive pulmonary disease) Status: Acute Current Visit: Yes (4) Cirrhosis of liver Status: Acute Current Visit: Yes (5) Hypokalemia Status: Acute Current Visit: Yes
[2020-04-29 07:24] LABS: Direct LDL Cholesterol 125.98 mg/dL (100-129)
--- NOTE | 2020-04-29 07:30 | HMH.PHAINT ---
MEDICATION RECONCILIATION COMPLETED ON PATIENT USING EXTERNAL FILL HISTORY FROM PHARMACY. -MARIAELENA DEAL, YOGESHD
--- NOTE | 2020-04-29 07:35 | ECG_ITS ---
APPROVED REPORT Exam: Resting ECG HR:64 bpm ECG Measurements Heart Rate 64 AXES RI 128 P 34 QRSd 80 QRS 56 QT 542 T 145 QTc 559 <Conclusion> Normal sinus rhythm ST & Marked T wave abnormality, consider lateral ischemia Prolonged QT Abnormal ECG Electronically signed by : Phillip Lopez, 05/05/2020 12:08:26
--- NOTE | 2020-04-29 09:05 | HMH.ACPN2 ---
Internal Medicine - PN: Subj *Date: 04/29/20 *Time: 08:45 Interval history: Did well overnight but continues to have intermittent chest pain. Minimal ectopic beats on telemetry but no other abnormalities. Stable on room air. Denies shortness of breath, edema, nausea, vomiting, bleeding, confusion. Exam Vital signs and Labs for Last 24 Hours: Temp Pulse Resp BP Pulse Ox 98.1 F 64 14 117/76 97 04/29/20 08:00 04/29/20 08:00 04/29/20 08:00 04/29/20 08:00 04/29/20 08:00 Laboratory Results - last 24 hr 04/28/20 10:10: WBC 11.2 H, RBC 4.39, Hgb 13.9, Hct 38.0, MCV 86.6, MCH 31.6 H, MCHC 36.5 H, RDW 15.9, Plt Count 207, MPV 7.6, Neut % (Auto) 77.9, Lymph % (Auto) 16.1, [place] % (Auto) 4.4, Eos % (Auto) 1.3, Baso % (Auto) 0.4, Neut # (Auto) 8.7 H, Lymph # (Auto) 1.8, [place] # (Auto) 0.5, Eos # (Auto) 0.2, Baso # (Auto) 0.1 04/28/20 10:10: Troponin I 15.00 H 04/28/20 10:10: Sodium 141, Potassium 2.6 L*, Chloride 104, Carbon Dioxide 31 H, Anion Gap 8.6, BUN 5 L, Creatinine 0.70, Estimated Creat Clear 125, Estimated GFR 89, Est GFR ( Amer) 108, Glucose 156 H, Calcium 9.1 04/28/20 10:10: PT 11.0, INR 1.08, APTT 22.6 L 04/28/20 11:30: Chlamy pneumoniae PCR Not detected, Adenovirus (PCR) Not detected, B. pertussis DNA (PCR) Not detected, Coronavirus OC43 (PCR) Not detected, Coronavirus HKU1 (PCR) Not detected, Coronavirus 229E (PCR) Not detected, COVID-19 PCR Not detected, Coronavirus NL63 (PCR) Not detected, Human Metapneumovir PCR Not detected, Influenza A (H1) PCR Not detected, Influ A (H1N1/09) PCR Not detected, Influenza A (H3) PCR Not detected, Influenza Type A (PCR) Not detected, Influenza Type B (PCR) Not detected, M. pneumoniae (PCR) Not detected, Parainfluenza 1 (PCR) Not detected, Parainfluenza 2 (PCR) Not detected, Parainfluenza 3 (PCR) Not detected, Parainfluenza 4 (PCR) Not detected, RSV (PCR) Not detected, Entero/Rhino (PCR) Not detected 04/28/20 11:43: Activated Clotting Time 251 H* 04/29/20 05:27: WBC 10.3, RBC 3.77 L, Hgb 11.9 L D, Hct 35.0 L, MCV 92.7, MCH 31.3 H, MCHC 33.7, RDW 16.3, Plt Count 182, MPV 8.1, Neut % (Auto) 60.0, Lymph % (Auto) 30.7, [place] % (Auto) 6.0, Eos % (Auto) 2.7, Baso % (Auto) 0.7, Neut # (Auto) 6.2, Lymph # (Auto) 3.2, [place] # (Auto) 0.6, Eos # (Auto) 0.3, Baso # (Auto) 0.1 04/29/20 05:27: Sodium 142, Potassium 3.4 L D, Chloride 107, Carbon Dioxide 30, Anion Gap 8.4, BUN 7 D, Creatinine 0.80, Estimated Creat Clear 110, Estimated GFR 76, Est GFR ( Amer) 92, Glucose 111 H D, Calcium 8.5 04/29/20 05:27: Triglycerides 149, Cholesterol 166, LDL Cholesterol Direct 125.98, VLDL Cholesterol 30, HDL Cholesterol 18 L, Cholesterol/HDL Ratio 9.2 H I & O for Last 24 hours: Intake & Output 04/26/20 04/27/20 04/28/20 04/29/20 23:59 23:59 23:59 23:59 Intake Total 720 / 720 120 / 120 Balance 720 / 720 120 / 120 Weight 81.6 kg Narrative: General, no acute distress on room air. Lying supine in bed - *Routine HEENT Exam Head: Present: normocephalic Eye: Present: EOMI, PERRL ENT: Present: mucous membranes moist - *Routine Neck Exam Present: supple. Absent: lymphadenopathy - *Routine Respiratory Exam Present: CTA bilaterally - *Routine Cardiovascular Exam Present: RRR - *Routine Abdominal Exam Present: soft, normoactive bowel sounds. Absent: tenderness - *Routine Extremities Exam Absent: cyanosis, clubbing, edema - *Routine Skin Exam Present: warm. Absent: rash - *Routine Neurological Exam Present: alert, oriented X3 Assessment and Plan (1) NSTEMI (non-ST elevated myocardial infarction) Current visit: Yes Status: Acute Category: Medical Code(s): I21.4 - Non-ST elevation (NSTEMI) myocardial infarction (2) Tobacco use Current visit: Yes Status: Acute Category: Social Hx Code(s): Z72.0 - Tobacco use (3) COPD (chronic obstructive pulmonary disease) Current visit: Yes Status: Acute Category: Medical Code(s): J44.9 - Chronic obstructive pulmo
--- NOTE | 2020-04-29 16:32 | ECG_ITS ---
APPROVED REPORT Exam: Resting ECG HR:59 bpm ECG Measurements Heart Rate 59 AXES MD 132 P 38 QRSd 92 QRS 1 QT 568 T 127 QTc 562 <Conclusion> Sinus bradycardia Inferior infarct, age undetermined Anterior infarct, age undetermined T wave abnormality, consider lateral ischemia Prolonged QT Abnormal ECG Electronically signed by : Phillip Lopez, 05/05/2020 12:07:21
--- NOTE | 2020-04-29 17:42 | PC.NURSE ---
PATIENT HAS BEEN RESTING IN BED T/O SHIFT. SHE TOOK A WALK AROUND THE UNIT AND TOOK A SHOWER. SHE CONTINUES TO COMPLAIN ABOUT PRESSURE AND TIGHTNESS IN HER CHEST. SHE ALSO COMPLAINS OF HAVING DIFFICULTY GETTING HER BREATH. THIS HAS BEEN REPORTED TO VIKTORIYA JAMES WHO ORDERED AN EKG, LASIX, AND PROTONIX. PATIENT MATERIALS SPECIALIST IS NSR WITH INVERTED T WAVES. CALL LIGHT WITHIN REACH WILL CONTINUE TO MONITOR.
[2020-04-30] VITALS (10 sets, daily range): BP systolic 86–121; BP diastolic 45–83; PULSE 55–72; RESP 14–17; TEMP 36.7–36.8; O2SAT 94–100; BMI 32.3
--- NOTE | 2020-04-30 03:15 | PC.NURSE ---
She has received PRN medication for pain a couple times t/o the shift. Received PRN medication for insomnia. She is resting at this time. NSR on telelmetry with inverted T waves; occasional PVCs noted. She continues with the 2LPM n/c for comfort for reports of SOA. Right radial site is ERNESTINA. Capillary refill <3.
--- NOTE | 2020-04-30 04:43 | PC.NURSE ---
Pt requesting pain medication and [facility]. Educated on the need to cutback on caffeine due to current chest pain. Verbalizes understanding. Given a surendra mist at this time.
--- NOTE | 2020-04-30 07:46 | HMH.DCSUM ---
General - General Admission date:: 04/28/20 Discharge date: 04/30/20 HPI HPI: 50-year-old white female with tobacco use, COPD and cirrhosis of the liver who normally has most of her care provided in [facility] presented to the emergency department by ambulance for evaluation of chest pain/pressure that started continuously on 04/26/2020. Symptoms of heavy chest pressure woke him from sleep with associated dry heaving ultimately progressing to vomiting with shortness of breath and diaphoresis. Patient did take an aspirin yesterday and today the symptoms persisted which prompted calling EMS for further evaluation. She does relate intermittent chest pressure for 1 week. She does continue to smoke. She denies illegal drug use. Initial work-up in the ER included CTA of the chest for possible pulmonary embolus, it returned without evidence of pulmonary embolus. EKG shows sinus rhythm with poor R wave progression anteriorly, possible inferior infarct with nonspecific ST-T abnormalities. Initial labs pertinent for potassium of 2.6 and troponin of 15.0 Cardiology contacted and patient was started on Brilinta and heparin. Above per cards... taken to public works laborer urgently. Hospital Course Hospital Course: Patient was admitted as noted above, taken to catheterization lab. Results as noted below ANGIOGRAPHIC RESULTS The left main artery Normal The left anterior descending artery Has a proximal concentric 80% stenosis followed by 40% mid vessel stenosis followed by an additional 80% stenosis proximal to the second diagonal artery. The remaining vessel has 30% stenoses The circumflex artery Is a large dominant vessel and has mid vessel 30 to 40% stenosis with 30% stenosis in the terminal large obtuse marginal artery The right coronary artery Is a nondominant vessel and occluded in its mid segment. The distal vessel fills via [id number] collaterals The PAYNE ventriculogram reveals Reduced ejection fraction estimated at 35% with anterior apical hypokinesis The left ventricular end-diastolic pressure 20 mmHg IMPRESSION Critical two-vessel coronary disease as described above Successful stenting of the proximal through mid right coronary artery in a contiguous manner with 3 drug-eluting stents reducing critical disease to 0% and improving coronary flow from CHAGO II to CHAGO-3 flow Chronically occluded nondominant right coronary artery which fills via [id number] collaterals Reduced ejection fraction with regional wall motion abnormality Mildly elevated LVEDP PLAN 1. Brilinta and aspirin for 1 year 2. LDL less than 55 3. Immediate avoidance of all tobacco products 4. Perform echocardiogram to better evaluate ejection fraction. If 35% or less place LifeVest prior to discharge home 5. Medical management for the chronically occluded right coronary 6. Standard therapy for ischemic heart disease using beta-blockers and FRANCOISE inhibitors 7. Cardiac rehabilitation Patient did well after the procedure. She was watched overnight and then through the day yesterday because of minimal ectopic beats and ongoing pain. It was felt that this represented reperfusion pain and she had no further evidence of ischemia on telemetry monitoring. Ectopic beats resolved. Repeat echocardiogram was improved over the data from the heart catheterization lab with EF of 40% with no significant wall motion abnormalities. This morning she was feeling well. Exam normalized. She will be discharged home with medical management, advised to stop smoking. Follow-up with cardiology next week. Objective Vital signs: Temp Pulse Resp BP Pulse Ox 98.2 F 57 L 17 102/65 L 94 L 04/30/20 00:00 04/30/20 06:00 04/30/20 00:00 04/30/20 06:00 04/30/20 06:00 no acute distress - *Routine HEENT Exam Head: Present: normocephalic Eye: Present: EOMI, PERRL ENT: Present: mucous membranes moist - *Routine Neck Exam Present: supple - *Routine
--- NOTE | 2020-04-30 09:01 | HMH.PHACLD ---
Tasha Rawls has received discharge medication counseling on the following medications: MD STARTING PATIENT ON ASPIRIN DR 81 MG DAILY, ATORVASTATIN 80 MG HS, LISINOPRIL 2.5 MG DAILY, METOPROLOL SUCCINATE 25 MG DAILY, AND BRILINTA 90 MG BID. PATIENT HAS BRILINTA ALREADY FILLED FROM CLINIC PHARMACY IN ROOM WITH HER AT DISCHARGE. SCRIPTS CALLED INTO [facility]. PATIENT INFORMED.
--- NOTE | 2020-04-30 09:35 | HMH.PNCARD ---
Subjective Date: 04/30/20 Time: : Principal diagnosis: NSTEMI Interval history: This is a 41-year-old white female who is status post stenting to the LAD with 3 drug-eluting stents. The patient is on Brilinta and aspirin for dual antiplatelet therapy. She states that she is still having some intermittent chest pain but this is better now. She is on isosorbide which she will go home on this medication. She complains of some mild shortness of breath intermittently. This is most likely from her Brilinta, continue to follow this to see if it improves. She denies any edema. She denies any fever, chills, nausea, vomiting, diarrhea, PND or orthopnea. Exam Vital signs and Labs for Last 24 Hours: Temp Pulse Resp BP Pulse Ox 98.0 F 57 L 17 102/65 L 94 L 04/30/20 08:00 04/30/20 06:00 04/30/20 00:00 04/30/20 06:00 04/30/20 06:00 I & O for Last 24 hours: Intake & Output 04/27/20 04/28/20 04/29/20 04/30/20 23:59 23:59 23:59 23:59 Intake Total 720 / 720 860 / 860 10 / 10 Output Total 900 / 900 Balance 720 / 720 860 / 860 -890 / -890 Weight 179 lb 14.355 oz 189 lb 2 oz Narrative: Telemetry strip shows sinus rhythm with a rate of 71. - Constitutional no acute distress, obese - *Routine HEENT Exam Head: Present: normocephalic, atraumatic Eye: Present: EOMI, PERRL ENT: Present: mucous membranes moist - *Routine Neck Exam Present: supple, full ROM, normal carotid upstroke. Absent: JVD, carotid bruit, lymphadenopathy - *Routine Respiratory Exam Present: CTA bilaterally - *Routine Cardiovascular Exam Present: RRR, Normal S1, Normal S2. Absent: murmur - *Routine Abdominal Exam Present: soft, normoactive bowel sounds. Absent: tenderness, distended - *Routine Extremities Exam Present: full ROM, pulses intact, normal capillary refill. Absent: cyanosis, clubbing, edema - *Routine Skin Exam Present: intact, warm. Absent: erythema, rash - *Routine Neurological Exam Present: alert, oriented X3, CN II-XII intact. Absent: sensory deficit, motor deficit Progress Note: A&P (1) NSTEMI (non-ST elevated myocardial infarction) Status: Acute Current Visit: Yes (2) Tobacco use Status: Chronic Current Visit: Yes (3) COPD (chronic obstructive pulmonary disease) Status: Acute Current Visit: Yes (4) Cirrhosis of liver Status: Acute Current Visit: Yes (5) Hyperlipidemia Status: Acute Current Visit: Yes (6) Congestive heart failure with left ventricular systolic dysfunction Status: Acute Current Visit: Yes Assessment and Plan for All Diagnoses:: Plan: 1. The patient is status post non-ST elevation myocardial infarction with 3 stents to the LAD. She will remain on Brilinta and aspirin for dual antiplatelet therapy. The patient is tolerating these medications well. 2. The patient has had some reperfusion angina following her left heart cath. She has been started on isosorbide and is tolerating this medication well. Recommend the patient be discharged on this antianginal. She did request pain medication to take at home due to her episodes of chest pain. I had a long discussion with the patient about her angina and antianginal medications and sending her home with isosorbide instead. The patient did verbalize understanding. 3. Her coronary artery disease is likely stable. 4. Her blood pressure is on the low side but acceptable at this time. 5. Her LDL goal is less than 55. Her LDL is currently 125. She is on a statin. 6. Tobacco cessation is highly advised and counseled. 7. The patient does have cardiomyopathy with an ejection fraction of 40 to 45%. She is on appropriate medications for cardiomyopathy with metoprolol and lisinopril. 8. The patient is stable for discharge home today from a cardiac standpoint. She will need to follow-up in 1 week on an outpatient basis in the cardiology clinic. Thank you for the opportunity to help participate in the care of this pat
== END 2020-04-30 12:00 | disposition home or self-care (01) | DRG 247 ==
LOC: ER 12:03 → 2ND 12:31
PROVIDERS: Internal Medicine; Physician Assistant; Admitting Provider Internal Medicine Adolescent Medicine; Emergency Provider Family Medicine; PCP Family Medicine; Visit Provider Internal Medicine Adolescent Medicine
PROC: 027034Z Dilation of Coronary Artery, One Artery with Drug-eluting Intraluminal Device, Percutaneous Approach (ICD-10-PCS; principal; 2020-04-28 12:00)
DX: I21.4 Non-ST elevation (NSTEMI) myocardial infarction (principal); I25.10 Atherosclerotic heart disease of native coronary artery without angina pectoris; I10 Essential (primary) hypertension; Z72.0 Tobacco use; J44.9 Chronic obstructive pulmonary disease, unspecified; K74.60 Unspecified cirrhosis of liver; E87.6 Hypokalemia; Z79.899 Other long term (current) drug therapy
CPT/HCPCS: 36415; 71045; 71275; 80048; 80061; 84484; 85025; 85347; 85610; 85730; 87581; 87633; 87798; 92941; 93005; 93306; 93458; 96365; 96367; 96375; 96376; 99152; 99153; 99285; C1769; C1876; C9606; J1644; Q9967

== ENCOUNTER → 2020-05-05 08:54 | Outpatient (CLI) | payer BC, SELFPAY ==
[2020-05-05 10:25] LABS: Chloride 104 mmol/L (98-107); Sodium 140 mmol/L (136-145)
[2020-05-05 10:28] LABS: Basophils # 0.1 K/mm3 (0-0.2); Basophils % 0.4 % (0.1-2.0); Eosinophils # 0.3 K/mm3 (0.0-0.4); Eosinophils % 2.5 % (0.1-12.0); Hematocrit 42.7 % (37.0-47.0); Hemoglobin 14.6 g/dL (12.2-16.2); Lymphocytes % 13.9 % (10-50); Mean Corpuscular HGB Conc 34.2 g/dL (31.8-35.4); Mean Corpuscular Hemoglobin 31.2 pg (27.0-31.2); Mean Platelet Volume 7.2 fl (7.4-10.4); Monocytes # 0.7 K/mm3 (0.1-1.0); Monocytes % 4.9 % (1.7-9.3); Neutrophils % 78.3 % (37.0-80.0); Platelet Count 275 K/mm3 (142-424); Red Cell Distribution Width 15.9 % (11.5-17.5)
[2020-05-05 10:29] LABS: Blood Urea Nitrogen 5 mg/dl (7-17); Calcium 9.7 mg/dl (8.4-10.2); Carbon Dioxide 27 mmol/L (22.0-30.0); Estimated Glomerular Filt Rate 76 ml/min (>60); GFR (African American) 92 ML/MIN (>60); Glucose 106 mg/dl (74-100)
== END ==
PROVIDERS: Visit Provider Internal Medicine
DX: I50.20 Unspecified systolic (congestive) heart failure (principal); I21.4 Non-ST elevation (NSTEMI) myocardial infarction; I25.10 Atherosclerotic heart disease of native coronary artery without angina pectoris; R53.83 Other fatigue; E78.5 Hyperlipidemia, unspecified; Z95.5 Presence of coronary angioplasty implant and graft
CPT/HCPCS: 36415; 80048; 85025

== ENCOUNTER 2020-05-08 21:24 | Emergency (ER) | payer BC, SELFPAY ==
[2020-05-08 21:26] VITALS: BP 131/82; PULSE 110; RESP 15; TEMP 38.1; O2SAT 92; BMI 31.9
--- NOTE | 2020-05-08 21:27 | ECG_ITS ---
APPROVED REPORT Exam: Resting ECG HR:110 bpm ECG Measurements Heart Rate 110 AXES CA 94 P 33 QRSd 78 QRS 20 QT 402 T 134 QTc 544 <Conclusion> Sinus tachycardia with short CA Previously noted inferior and anterior infarct changes Abnormal ECG Electronically signed by : Phillip Lopez, 05/12/2020 17:15:37
[2020-05-08 21:30] VITALS: BP 115/81; PULSE 106; RESP 16; O2SAT 95
--- NOTE | 2020-05-08 21:31 | XR_ITS ---
PROCEDURE: XR CHEST 2V CLINICAL HISTORY: chest and left arm pain COMPARISON: CT ANGIO CHEST from 04/28/2020 XR CHEST PORTABLE from 04/28/2020 FINDINGS: The cardiomediastinal silhouette and pulmonary vascularity are within normal limits. The lungs are clear without infiltrates, suspicious nodules, or pleural effusions. No acute bony abnormalities. IMPRESSION: No acute findings. Dictated by: Cb Chambers MD 05/09/2020 06:25 Electronically signed by Cb Chambers MD in [place] 05/09/2020 06:25
[2020-05-08 21:39] LABS: Basophils % 0.2 % (0.1-2.0); Eosinophils # 0.4 K/mm3 (0.0-0.4); Eosinophils % 2.1 % (0.1-12.0); Hematocrit 37.9 % (37.0-47.0); Hemoglobin 13.3 g/dL (12.2-16.2); Lymphocytes # 0.7 K/mm3 (0.7-4.5); Lymphocytes % 3.6 % (10-50); Mean Corpuscular HGB Conc 35.2 g/dL (31.8-35.4); Mean Corpuscular Hemoglobin 31.2 pg (27.0-31.2); Mean Corpuscular Volume 88.7 fl (81-99); Mean Platelet Volume 7.6 fl (7.4-10.4); Monocytes # 0.3 K/mm3 (0.1-1.0); Monocytes % 1.4 % (1.7-9.3); Neutrophils # 17.3 K/mm3 (1.8-7.8); Neutrophils % 92.8 % (37.0-80.0); Platelet Count 269 K/mm3 (142-424); Red Blood Count 4.27 M/mm3 (4.20-5.40); White Blood Count 18.7 K/mm3 (4.8-10.8)
[2020-05-08 21:43] LABS: Chloride 100 mmol/L (98-107); MANUAL DIFFERENTIAL MANUAL DIFFERENTIAL (MANUAL DIFF); Sodium 135 mmol/L (136-145)
[2020-05-08 21:46] LABS: Blood Urea Nitrogen 4 mg/dl (7-17); Creatinine Clearance Estimated 113 mL/min (50-200); Estimated Glomerular Filt Rate 76 ml/min (>60); GFR (African American) 92 ML/MIN (>60); Lactic Acid 1.8 mmol/L (0.7-2.1)
[2020-05-08 21:47] LABS: Calcium 9.4 mg/dl (8.4-10.2); Carbon Dioxide 27 mmol/L (22.0-30.0); Glucose 115 mg/dl (74-100)
[2020-05-08 21:59] LABS: Troponin I 0.08 ng/ml (0.00-0.034)
[2020-05-08 22:00] VITALS: BP 118/65; PULSE 101; RESP 16; O2SAT 95
[2020-05-08 22:07] LABS: Anion Gap 10.8 mEq/L (5-15); Potassium 2.8 mmoL/L (3.5-5.1)
[2020-05-08 22:27] LABS: Eosinophils % 1 % (0-3); Lymphocytes % 6 % (10-50); Monocytes % 1 % (2-9); Neutrophils % 92 % (42-76); Platelet Estimate Normal; Stomatocytes 1+; Total Cells Counted 100
[2020-05-08 22:30] VITALS: BP 110/68; PULSE 96; RESP 17; O2SAT 96
--- NOTE | 2020-05-08 22:54 | [facility].EDCP ---
ED Disposition Clinical Impression: Tobacco use, Hypokalemia, SIRS (systemic inflammatory response syndrome), COVID-19 virus IgG antibody detected CAP (community acquired pneumonia) Qualifiers: Laterality: right Lung location: lower lobe of lung Qualified Code(s): J18.9 - Pneumonia, unspecified organism Disposition: Home, Self-Care Condition on Discharge: Good Instructions: DI for Cough -- Adult Additional Instructions: see card this week and use meds and see pcp and recheck if needed Prescriptions: cephALEXin [Keflex 500mg Cap] 500 mg PO TID #30 cap Transmission Status: Sent to [facility] # [id number] predniSONE [Prednisone 20mg Tab] 20 mg PO BID #10 tab Transmission Status: Pending to [facility] # [id number] Azithromycin [Zithromax 250mg tab] 250 mg PO DIRECTED #6 tab Transmission Status: Pending to [facility] # [id number] Referrals: Britton Sinclair [Primary Care Provider] - - Critical Care Critical Care Time: No Attestation: On 05/08/20, the high probability of a clinically significant, sudden or life threatening deterioration of the following system(s) required my full and direct attention, intervention and personal management. The time I documented below is in addition to time spent performing reported procedures but includes the following listed in this critical care notation. Medical Decision Making - Medical Records Medical records reviewed: Yes: I reviewed the patient's medical records. - Lee Inquiry Pt receiving controlled substance: No Vital Signs: 05/08/20 21:26 05/08/20 21:30 05/08/20 22:00 Temperature 100.6 F H Temperature Source Oral Pulse Rate [Right Brachial] 110 H 106 H 101 H Respiratory Rate 15 16 16 Blood Pressure [Right Arm] 131/82 115/81 118/65 Blood Pressure Mean [Right Arm] 98 92 82 Blood Pressure Source [Right Arm] Automatic Cuff Automatic Cuff Automatic Cuff Blood Pressure Position [Right Arm] Sitting Supine Supine 02 Sat by Pulse Oximetry 92 L 95 95 Oxygen Delivery Method Room Air Room Air Room Air 05/08/20 22:30 05/08/20 23:06 Temperature 99.3 F Temperature Source Oral Pulse Rate [Right Brachial] 96 H Respiratory Rate 17 Blood Pressure [Right Arm] 110/68 Blood Pressure Mean [Right Arm] 82 Blood Pressure Source [Right Arm] Automatic Cuff Blood Pressure Position [Right Arm] Supine 02 Sat by Pulse Oximetry 96 Oxygen Delivery Method Room Air - Lab Data Lab results reviewed: Yes: I reviewed the patient's lab results. Lab Results 05/08/20 21:30: WBC 18.7 H, RBC 4.27, Hgb 13.3, Hct 37.9, MCV 88.7, MCH 31.2, MCHC 35.2, RDW 16.0, Plt Count 269, MPV 7.6, Neut % (Auto) 92.8 H, Lymph % (Auto) 3.6 L, [place] % (Auto) 1.4 L, Eos % (Auto) 2.1, Baso % (Auto) 0.2, Neut # (Auto) 17.3 H, Lymph # (Auto) 0.7, [place] # (Auto) 0.3, Eos # (Auto) 0.4, Baso # (Auto) 0.0, Total Counted 100, Neutrophils % (Manual) 92 H, Lymphocytes % (Manual) 6 L, Monocytes % (Manual) 1 L, Eosinophils % (Manual) 1, Platelet Estimate Normal, Stomatocytes 1+ 05/08/20 21:30: Sodium 135 L, Potassium 2.8 L*, Chloride 100, Carbon Dioxide 27, Anion Gap 10.8, BUN 4 L, Creatinine 0.80, Estimated Creat Clear 113, Estimated GFR 76, Est GFR ( Amer) 92, Glucose 115 H, Calcium 9.4, Troponin I 0.08 H 05/08/20 21:30: Lactate 1.8 05/08/20 21:30: SARS-CoV-2 IgG Ab (Rapid) Positive A, SARS-CoV-2 IgM Ab (Rapid) Negative 05/09/20 00:00: Urine Color Yellow, Urine Appearance Clear, Urine pH 7.0, Ur Specific [place] <= 1.005, Urine Protein Negative, Urine Glucose (UA) Negative, Urine Ketones Negative, Urine Blood Negative, Urine Nitrate Negative, Urine Bilirubin Negative, Urine Urobilinogen 0.2, Ur Leukocyte Esterase Negative, Urine WBC Occasional, Ur Squamous Epith Cells 5-10, Urine Bacteria 1+ Result diagrams: 05/08/20 21:30 05/08/20 21:30 Orders (Tests/Meds): ED MEDICATIONS Generic Name Dose Route Start Last Admin Trade Name Freq PRN Reason Stop Dose Admin Sodium Chloride 1,000 mls @ 999 mls/hr
[2020-05-08 23:06] VITALS: TEMP 37.4
[2020-05-08 23:38] LABS: Coronavirus 19 IgM Antibody Negative (Negative)
[2020-05-08 23:39] LABS: Coronavirus 19 IgG Antibody Positive (Negative)
--- NOTE | 2020-05-09 00:02 | PC.NURSE ---
SPOKE WITH DR ALEJANDRE
[2020-05-09 00:16] LABS: Microscopic, Urine URINE MICROSCOPIC (MICROSCOPIC)
[2020-05-09 00:19] LABS: Appearance,Urine CLEAR (Clear); Bilirubin,Urine Negative (Negative); Blood, Urine Negative (Negative); Color,Urine YELLOW (Yellow); Glucose,Urine (UA) Negative (Negative); Ketones,Urine Negative (Negative); Leukocyte Esterase,Urine Negative (Negative); Nitrate,Urine Negative (Negative); Protein,Urine Negative (Negative); Specific Gravity, Urine <= 1.005 (1.005-1.030); Urobilinogen,Urine 0.2 EU/dl (0.2)
[2020-05-09 00:26] LABS: Bacteria,Urine 1+ /lpf; WBC,Urine Occasional #/hpf (0-3)
[2020-05-09 01:42] VITALS: BP 93/50; PULSE 71; RESP 12; TEMP 37.4; O2SAT 97
--- NOTE | 2020-05-10 14:11 | PC.NURSE ---
notified ER MD of pt preliminary blood culture result, pt discharge diagnoses and medications that pt was discharged home on. ER MD stated to call and check on pt to see how she is feeling. Called pt, no answer left voicemail.
== END 2020-05-09 01:46 | disposition home or self-care (01) ==
PROVIDERS: Emergency Provider Emergency Medicine; PCP Family Medicine
DX: J18.9 Pneumonia, unspecified organism (principal); E87.6 Hypokalemia; R65.10 Systemic inflammatory response syndrome (SIRS) of non-infectious origin without acute organ dysfunction; J44.9 Chronic obstructive pulmonary disease, unspecified; I25.10 Atherosclerotic heart disease of native coronary artery without angina pectoris; I25.2 Old myocardial infarction; I10 Essential (primary) hypertension; E78.5 Hyperlipidemia, unspecified; F17.210 Nicotine dependence, cigarettes, uncomplicated; Z01.84 Encounter for antibody response examination; Z90.49 Acquired absence of other specified parts of digestive tract
CPT/HCPCS: 71046; 80048; 81001; 83605; 84484; 85007; 85025; 86328; 87040; 87077; 93005; 96365; 96366; 96367; 96374; 96375; 99284; J0456